=== PATIENT | male | born 1985 | race Caucasian/White ===

== ENCOUNTER 2020-03-04 12:09 | Emergency (ER) | payer MEDICAID ==
--- NOTE | 2020-03-04 12:12 | ED Physician Documentation ---
PD HPI SKIN - Stated complaint Stated Complaint: LUMP ON NECK - History obtained from History obtained from: Patient - History of Present Illness Timing - onset: How many days ago (few) Timing - duration: Days (few) Timing - details: Gradual onset, Still present Location: Neck (left sbumandibular area) Quality / character: Painful, Swelling. No: Discolored, Draining Associated symptoms: Other (denies tooth nor ear pains. no skin abscess/sores.). No: Fever, Myalgias, Dyspnea, N/V/D Contributing factors: No: Insect bite /sting, Recent illness Similar symptoms before: Has not had sx before Review of Systems Constitutional: denies: Fever, Chills, Myalgias Nose: denies: Rhinorrhea / runny nose, Congestion Throat: denies: Dental pain / toothache, Oral lesions / sores, Sore throat, Swollen tonsils Cardiac: denies: Chest pain / pressure Respiratory: denies: Dyspnea, Cough Skin: denies: Rash, Lesions PD PAST MEDICAL HISTORY - Past Medical History Past Medical History: No - Present Medications Home Medications: Ambulatory Orders Medication Instructions Recorded Confirmed Cephalexin [Keflex] 500 mg PO Q6H #28 capsule 03/04/20 Ibuprofen [Motrin] 600 mg PO TID PRN #21 tab 03/04/20 - Allergies Allergies/Adverse Reactions: Allergies Allergy/AdvReac Type Severity Reaction Status Date / Time No Known Drug Allergies Allergy Verified 03/04/20 12:15 PD ED PE NORMAL - Vitals Vital signs reviewed: Yes - General General: Alert and oriented X 3, No acute distress, Well developed/nourished - HEENT HEENT: Moist mucous membranes, Pharynx benign. No: Ears normal (right is normal. Left TM is normal, but canal with some general redness and swelling in lateral aspect. No skin sores/erosions. No exudate.) - Neck Neck: Supple, no meningeal sign, Other (left anterior adenopathy, 2 cm, mild tender. No skin sores nor redness. Has a osuna, but no folliculitis noted. ) - Cardiac Cardiac: RRR, No murmur - Respiratory Respiratory: Clear bilaterally Results - Vitals Vitals: Vital Signs - 24 hr 03/04/20 12:16 Temperature 36.7 C Heart Rate 100 Respiratory 16 Rate Blood Pressure 177/100 H O2 Saturation 100 Oxygen O2 Source Room air PD MEDICAL DECISION MAKING - ED course Complexity details: considered differential (Seems adenitis. Regionally there is some redness of ear canal, so presume that is the source. He is concerned about "cancer" and so told him to recheck if not improved with abx. ), d/w patient Departure - Departure Disposition: 01 Home, Self Care Clinical Impression: Adenitis, acute, Cellulitis of left ear canal Condition: Stable Record reviewed to determine appropriate education?: Yes Instructions: ED Cellulitis Facial Prescriptions: Cephalexin [Keflex] 500 mg PO Q6H #28 capsule Ibuprofen [Motrin] 600 mg PO TID PRN #21 tab PRN Reason: Pain Comments: Your ear canal does have some redness and swelling so I think that is the local infection that is causing the lymph node to be inflamed. I would anticipate improvement in this over the next several days and resolved in a week or so with antibiotics and anti-inflammatories. Recheck if not fully resolved in that timeframe.
[2020-03-04 12:19] VITALS: BP 177/100
[2020-03-04] MEDS ORDERED: cephALEXin 250 MG CAPSULE PO STA (12:34)
[2020-03-04] MEDS ORDERED: IBUPROFEN 600 MG TABLET PO STA (12:34)
== END 2020-03-04 12:44 | disposition home or self-care (01) ==
LOC: ED 12:09
DX: L04.0 Acute lymphadenitis of face, head and neck (principal); H60.12 Cellulitis of left external ear
CPT/HCPCS: 99282; 99283; A9270

== ENCOUNTER 2020-03-24 10:48 | Emergency (ER) | payer MEDICAID ==
[2020-03-24] MEDS ORDERED: HYDROcodone/ACETAM 7.5 MG/325 MG 15 ML UDC PO STA (11:45)
[2020-03-24] MEDS ORDERED: KETOROLAC 60 MG/2 ML VIAL IM STA (11:45)
[2020-03-24] MEDS ORDERED: DEXAMETHASONE 10 MG/ML VIAL PO STA (11:45)
--- NOTE | 2020-03-24 12:11 | ED Physician Documentation ---
History of Present Illness - Stated complaint Stated Complaint: SORE THROAT - Chief complaint Chief Complaint: Heent - History obtained from History obtained from: Patient - Additonal information Additional information: Patient comes emergency department complaining of sore throat and tonsillar swelling that is keeping him awake at night and he can unpleasant for him to swallow. Patient states that he was diagnosed with mono about 3 weeks ago and has had a sore throat ever since. He states he was tested for strep at the same time and found to be negative. He initially had fevers but is not having those anymore. He states that mainly, he is having this throat pain now. He states that he gets some relief with ibuprofen with Tylenol, but that he is still very uncomfortable. He is able to swallow his secretions and liquids and even some soft foods but that it is just unpleasant and sometimes he cannot bring himself to do it. Patient denies any nausea or vomiting. He states he has had slight pain in his left upper quadrant area but that this has not been progressing. No other complaints at this time. Review of Systems Ten Systems: 10 systems reviewed and negative Constitutional: reports: Reviewed and negative Eyes: reports: Reviewed and negative Ears: reports: Reviewed and negative Nose: reports: Reviewed and negative Throat: reports: Sore throat Cardiac: reports: Reviewed and negative Respiratory: reports: Reviewed and negative GI: reports: Reviewed and negative : reports: Reviewed and negative Skin: reports: Reviewed and negative Musculoskeletal: reports: Reviewed and negative Neurologic: reports: Reviewed and negative Psychiatric: reports: Reviewed and negative Endocrine: reports: Reviewed and negative Immunocompromised: reports: Reviewed and negative PD PAST MEDICAL HISTORY - Past Medical History Past Medical History: Yes Cardiovascular: Hypertension, High cholesterol Respiratory: None Neuro: None Endocrine/Autoimmune: None GI: None : None HEENT: None Psych: None Musculoskeletal: None Derm: None - Past Surgical History Past Surgical History: No - Present Medications Home Medications: Ambulatory Orders Medication Instructions Recorded Confirmed Cephalexin [Keflex] 500 mg PO Q6H #28 capsule 03/04/20 Ibuprofen [Motrin] 600 mg PO TID PRN #21 tab 03/04/20 Hydrocodone/Acetaminophen 7.5 ml PO Q6HR PRN #75 ml 03/24/20 [Hydrocodone-Acetamin 10-325/15] predniSONE [Prednisone] 60 mg PO DAILY #10 tablet 03/24/20 - Allergies Allergies/Adverse Reactions: Allergies Allergy/AdvReac Type Severity Reaction Status Date / Time No Known Drug Allergies Allergy Verified 03/04/20 12:15 - Social History Does the pt smoke?: No Smoking Status: Former smoker Does the pt drink ETOH?: Yes Does the pt have substance abuse?: No - Immunizations Immunizations are current?: No Immunizations: TDAP >10years/unknown - POLST Patient has POLST: No PD ED PE NORMAL - Vitals Vital signs reviewed: Yes - General General: Alert and oriented X 3, No acute distress - HEENT HEENT: Atraumatic, PERRL, EOMI, Moist mucous membranes, Pharynx benign (Erythematous tonsils with extensive exudates. Tonsils are 3+ bilaterally.) - Neck Neck: Supple, no meningeal sign - Cardiac Cardiac: RRR, No murmur - Respiratory Respiratory: Clear bilaterally - Abdomen Abdomen: Normal bowel sounds, Soft, Non tender, Non distended - Derm Derm: Warm and dry - Extremities Extremities: No deformity - Neuro Neuro: Alert and oriented X 3 - Psych Psych: Normal mood, Normal affect Results - Vitals Vitals: Vital Signs - 24 hr 03/24/20 03/24/20 03/24/20 10:56 11:01 11:43 Temperature 36.9 C 37.1 C Heart Rate 107 H 104 H 98 Respiratory 26 H 16 18 Rate Blood Pressure 157/121 H 157/99 H 156/100 H O2 Saturation 99 96 96 03/24/20 12:17 Temperature Heart Rate 90 Respiratory 18 Rate Blood Pressure 155/109 H O2 Saturation 95 Oxygen O2 Source Room air PD MEDICAL DECISION MAKING - ED course Complexity details: considered differential, d/w patient ED course: I discussed with the patient that the symptoms of mono can go on from anywhere for several weeks to some months. We have discussed symptomatic management at home. I have given him symptomatic treatment in the ED with IM Decadron and Toradol, as well as a dose of hydrocodone elixir. I prescribed a short course of prednisone for the patient, as well as hydrocodone elixir. He may use ibuprofen and Tylenol at home, as well, as needed. We have discussed the usual indications for return. Departure - Departure Disposition: 01 Home, Self Care Clinical Impression: Pharyngitis due to infectious mononucleosis Condition: Stable Instructions: ED Mononucleosis Prescriptions: Hydrocodone/Acetaminophen [Hydrocodone-Acetamin 10-325/15] 7.5 ml PO Q6HR PRN #75 ml PRN Reason: Pain predniSONE [Prednisone] 60 mg PO DAILY #10 tablet
[2020-03-24 12:17] VITALS: BP 155/109
== END 2020-03-24 12:32 | disposition home or self-care (01) ==
LOC: ED 10:48
DX: B27.90 Infectious mononucleosis, unspecified without complication (principal); Z87.891 Personal history of nicotine dependence
CPT/HCPCS: 96372; 99283; 99284; A9270